=== PATIENT | male | born 1995 | race Caucasian/White ===

== ENCOUNTER 2020-07-22 12:19 | Emergency (ER) | payer OTHER | END 2020-07-22 13:35 | disposition left against medical advice (07) | LOC: ED 12:19 | DX: Z53.21 Procedure and treatment not carried out due to patient leaving prior to being seen by health care provider (principal) ==

== ENCOUNTER 2020-07-22 15:15 | Emergency (ER) | payer OTHER ==
[~2020-07-22] VITALS: Ht 175.3 cm; Wt 72.1 kg
[2020-07-22 15:35] VITALS: Ht 175.3 cm; Wt 72.1 kg
[2020-07-22 18:16] LABS: RED CELL DISTRIBUTION WIDTH 12.3 % (11.5-14.5)
[2020-07-22 18:17] LABS: PLATELET COUNT 423 x10^3mcL (130-400)
[2020-07-22 18:19] LABS: BASOPHIL % 0 % (0-2)
[2020-07-22 18:40] LABS: CALCIUM 10.6 mg/dL (8.5-10.1); CARBON DIOXIDE 22.6 mmol/L (21-32); CREATININE SERUM 2.8 mg/dL (0.7-1.3); POTASSIUM SERUM 3.7 mmol/L (3.5-5.1)
[2020-07-22 18:44] LABS: BILIRUBIN TOTAL 2.5 mg/dL (0.20-1.00)
[2020-07-22 18:45] LABS: ALBUMIN 5.3 g/dL (3.4-5.0); TOTAL PROTEIN, SERUM 9.7 g/dL (6.4-8.2)
[2020-07-22 20:20] VITALS: BP 123/75
== END 2020-07-22 20:19 | disposition home or self-care (01) ==
LOC: ED 15:15
PROVIDERS: Emergency Medicine
DX: E86.0 Dehydration (principal); R10.30 Lower abdominal pain, unspecified; R11.10 Vomiting, unspecified
CPT/HCPCS: J1885; J2405; J7030

== ENCOUNTER 2020-10-16 20:42 | Emergency (ER) | payer OTHER ==
[~2020-10-16] VITALS: Ht 175.3 cm; Wt 7.7 kg
[2020-10-16 20:54] VITALS: Ht 175.3 cm; Wt 7.7 kg
[2020-10-16 21:37] VITALS: BP 127/78
== END 2020-10-16 21:37 | disposition left against medical advice (07) ==
LOC: ED 20:42
DX: R56.9 Unspecified convulsions (principal)